=== PATIENT | male | born 1980 | race Caucasian/White ===

== ENCOUNTER 2023-08-03 01:56 | Emergency (ER) | payer MEDICAID ==
[~2023-08-03] VITALS: Ht 177.8 cm; Wt 72.6 kg
[2023-08-03 02:07] VITALS: BP 119/87; PULSE 108; RESP 20; TEMP 97.9; O2SAT 98
[2023-08-03 06:28] VITALS: BP 119/87; PULSE 108; RESP 20; TEMP 97.9; O2SAT 98
== END 2023-08-03 06:15 | disposition left against medical advice (07) ==
LOC: MED 01:56
DX: M79.605 Pain in left leg (principal); M79.604 Pain in right leg
CPT/HCPCS: 93970; 99284; Q0092; 96374